=== PATIENT | female | born 1970 | race Caucasian/White ===

== ENCOUNTER → 2020-12-14 15:29 | Outpatient (CLI) | payer OTHER, SELFPAY ==
--- NOTE | ~2020-12-14 | MM_ITS ---
EXAMINATION: MM screening [facility] BI w roland HISTORY: Screening TECHNIQUE: Craniocaudal and mediolateral oblique 3-D tomosynthesis images were obtained and synthetic 2-D images were generated. CAD analysis was submitted and interpreted. COMPARISON: Comparison to multiple prior studies sequentially, with oldest reviewed study dated 01/26. BREAST PARENCHYMAL COMPOSITION: Breast composed of scattered areas of fibroglandular density FINDINGS: . There is a new mass in the central aspect of the right breast in the subareolar location. There is nipple inversion. The mass measures approximately 1.8 cm. There are clustered calcification s of the left breast centered in the upper outer quadrant which are not significantly changed.. There are small masses in the upper outer quadrant of the right breast. IMPRESSION: 1. Developing right breast masses. 2. Additional mammographic views and possible breast ultrasound are recommended. BI-RADS Category 0: Incomplete: Needs additional imaging evaluation. Reviewed, dictated and finalized at location A. ATIONS BOARDMAN IMPRESSION: 1. Developing right breast masses. 2. Additional mammographic views and possible breast ultrasound are recommended . BI-RADS Category 0: Incomplete: Needs additional imaging evaluation.
== END ==
PROVIDERS: PCP Family Medicine; Visit Provider Obstetrics & Gynecology
DX: Z12.31 Encounter for screening mammogram for malignant neoplasm of breast (principal); R92.8 Other abnormal and inconclusive findings on diagnostic imaging of breast
CPT/HCPCS: 77063; 77067

== ENCOUNTER → 2021-01-04 07:50 | Outpatient (CLI) | payer OTHER, SELFPAY ==
--- NOTE | ~2021-01-04 | MMUS_ITS ---
EXAMINATION: MM diagnostic mammo unilat RT, US breast RT limited HISTORY: Right breast masses on screening mammogram TECHNIQUE: Additional 3-D tomosynthesis images of the right breast were performed and synthetic 2-D i mages were generated. CAD analysis was submitted and interpreted. High resolution limited right breas t ultrasound was performed. COMPARISON: 12/14/2020, 08/24/2018, 04/01/2017 FINDINGS: MAMMOGRAPHIC FINDINGS: There is a 1.7 cm oval, obscured, equal density mass in the middle third of the slightly upper breast at 12:00 location 2 cm deep to the nipple. Smaller obscured masses measuring up to 6 mm are seen in the posterior third of the breast at the 9:00 location. ULTRASOUND: There is a 1.4 cm cyst at the 12:00 location 1 cm from the nipple corresponding to the largest mammog raphically detected mass. Multiple smaller cysts are noted which measure up to 7 mm and correspond wi th the additional smaller mammographically detected masses. IMPRESSION: 1. No mammographic or sonographic evidence of malignancy. 2. Recommend routine screening mammography in one year. BI-RADS Category 2: Benign finding(s). Reviewed, dictated and finalized at location A. ELING PLANT OPERATOR IMPRESSION: 1. No mammographic or sonographic evidence of malignancy. 2. Recommend routine screening mammography in one year. BI-RADS Category 2: Benign finding(s).
== END ==
PROVIDERS: PCP Family Medicine; Visit Provider Obstetrics & Gynecology
DX: R92.8 Other abnormal and inconclusive findings on diagnostic imaging of breast (principal)
CPT/HCPCS: 76642; 77065

== ENCOUNTER → 2021-06-18 07:48 | Outpatient (CLI) | payer OTHER, SELFPAY ==
--- NOTE | ~2021-06-18 | MMUS_ITS ---
EXAMINATION: MM diagnostic [facility] BI w roland, US breast BI complete HISTORY: Palpable breast abnormalities. TECHNIQUE: Additional 3-D tomosynthesis images of the breasts were performed and synthetic 2-D images were generated. CAD analysis was submitted and interpreted. High resolution complete bilateral breas t ultrasound was performed. COMPARISON: Comparison to multiple prior studies sequentially, with oldest reviewed study dated 04/13. BREAST PARENCHYMAL COMPOSITION: Breast composed of scattered areas of fibroglandular density. FINDINGS: MAMMOGRAPHIC FINDINGS: There are scattered bilateral breast masses which are partially obscured by fibroglandular tissue. La rgest in the medial aspect of the right breast anteriorly measuring 1.7 cm on CC view. ULTRASOUND: Complete bilateral breast ultrasound: There are multiple bilateral simple and complicated cysts of ritchie th breasts, largest at 12:00 in the right breast in the area of palpable concern measuring 1.8 cm res ponding to the dominant mammographic mass. No suspicious sonographic masses to suggest malignancy. IMPRESSION: 1. Multiple benign bilateral breast cysts corresponding to mammographic masses. No evidence for malig amanda in either breast. 2. Routine yearly screening mammogram and regular clinical breast examination are recommended. BI-RADS Category 2: Benign finding(s). Reviewed, dictated and finalized at location A. IMPRESSION: 1. Multiple benign bilateral breast cysts corresponding to mammographic masses. No evidence for malignancy in either breast. 2. Routine yearly screening mammogram and regular clinical breast examination a re recommended. BI-RADS Category 2: Benign finding(s).
== END ==
PROVIDERS: PCP Family Medicine; Visit Provider Obstetrics & Gynecology
DX: R92.8 Other abnormal and inconclusive findings on diagnostic imaging of breast (principal)
CPT/HCPCS: 76641; 77062; 77066; G0279

== ENCOUNTER → 2022-02-20 14:02 | Outpatient (CLI) | payer OTHER, SELFPAY ==
--- NOTE | ~2022-02-20 | MM_ITS ---
EXAMINATION: MM screening [facility] BI w roland HISTORY: Screening mammogram TECHNIQUE: Craniocaudal and mediolateral oblique 3-D tomosynthesis images were obtained and synthetic 2-D images were generated. CAD analysis was submitted and interpreted. COMPARISON: No prior mammogram is available for comparison at this institution. BREAST PARENCHYMAL COMPOSITION: FINDINGS: Stable circumscribed low-density 1.5 cm opacity in the medial subareolar area of the right breast, not significantly changed since 12/14/2020 There has been no suspicious interval change; this was documented to be a 1.4 cm cyst on January 04, 2021 Limited right breast ultrasound examination. Occasional similar low-density circumscribed opacities measuring up to 8.5 mm are noted 4 mm and 8.5 mm low-density circumscribed opacities are noted, having similar benign mammographic features, likely smaller cysts. IMPRESSION: 1. No mammographic evidence of malignancy. 2. Recommend routine screening mammography in one year. BI-RADS Category 2: Benign finding(s). Reviewed, dictated and finalized at location A.
== END ==
PROVIDERS: PCP Obstetrics & Gynecology; Visit Provider Student in an Organized Health Care Education/Training Program
DX: Z12.31 Encounter for screening mammogram for malignant neoplasm of breast (principal)
CPT/HCPCS: 77063; 77067

== ENCOUNTER → 2023-05-12 15:02 | Outpatient (CLI) | payer OTHER, SELFPAY ==
--- NOTE | ~2023-05-12 | MM_ITS ---
EXAMINATION: MM screening [facility] BI w roland HISTORY: Screening mammogram TECHNIQUE: Craniocaudal and mediolateral oblique 3-D tomosynthesis images were obtained and synthetic 2-D images were generated. CAD analysis was submitted and interpreted. COMPARISON: 02/16/2022 bilateral screening mammogram 06/18/2021 diagnostic bilateral mammogram and bilateral complete breast ultrasound 01/04/2021 diagnostic right mammogram and limited right breast ultrasound 12/14/2020, 08/24/2018 bilateral screening mammogram examinations. There is an grossly BREAST PARENCHYMAL COMPOSITION: FINDINGS: Right breast: There is an approximately 6 x 10 mm circumscribed mass in the posterior mid to lower ou ter right breast. There is a pinpoint calcification within which may be a superficial calcification o f fibroadenoma. Diagnostic right mammogram and right breast ultrasound examination are recommended. Otherwise no suspicious mass or architectural distortion, malignant calcification, skin thickening or retraction or significant new or developing density of the right breast is noted. There is interval decreased size of an approximately 1.5 cm circumscribed mass situated anteriorly in the right lateral subareolar area since 02/16/2022, likely an involuting cyst. Left breast: There is no evidence of suspicious mass, calcification, or architectural distortion to s uggest malignancy in either breast. There has been no suspicious interval change. IMPRESSION: 1. 6 x 10 mm posterior mid to lower outer right breast circumscribed mass 2. Diagnostic right mammogram and right breast ultrasound examination are recommended BI-RADS Category 0: Incomplete: Needs additional imaging evaluation. Reviewed, dictated and finalized at location A. IMPRESSION: 1. 6 x 10 mm posterior mid to lower outer right breast circumscribed mass 2. Diagnostic right mammogram and right breast ultrasound examination are recom mended BI-RADS Category 0: Incomplete: Needs additional imaging evaluation.
== END ==
PROVIDERS: PCP Obstetrics & Gynecology; Visit Provider Obstetrics & Gynecology
DX: Z12.31 Encounter for screening mammogram for malignant neoplasm of breast (principal); R92.8 Other abnormal and inconclusive findings on diagnostic imaging of breast
CPT/HCPCS: 77063; 77067

== ENCOUNTER → 2023-06-11 08:14 | Outpatient (CLI) | payer OTHER, SELFPAY ==
--- NOTE | ~2023-06-11 | MMUS_ITS ---
EXAMINATION: MM diagnostic zulma RT w roland, US breast RT complete HISTORY: 6 x 10 mm posterior mid to lower outer right breast circumscribed mass reported on 05/12/2023 screening mammogram TECHNIQUE: Additional 3-D tomosynthesis images of the right breast were performed and synthetic 2-D i mages were generated. CAD analysis was submitted and interpreted. High resolution complete right jannette st ultrasound examination including all 4 quadrants and subareolar area was performed. COMPARISON: 05/12/2023 bilateral screening mammogram FINDINGS: MAMMOGRAPHIC FINDINGS: Multiple right breast masses are suggested, the largest noted at approximately 2:00, measuring approx imately 11 x 12 mm, and at 9:00, measuring approximately 7.9 x 10 mm. These appear circumscribed. Add itional masses may be present. Complete right breast ultrasound examination was performed. ULTRASOUND: No suspicious mass or shadowing is evident. 1:00 3 cm from nipple: 1 cm cysts with through transmission posterior enhancement 3:00 3 cm from nipple: 4 x 6 x 7.4 mm fatty lesion, benign 6:00 2 cm from distal: Cluster of small cyst 9:00 5 cm from nipple: 9 x 12 mm probable cyst, with through transmission posterior enhancement 9:00 6 cm from nipple: 2.6 x 3.4 mm probable cyst 10:00 5 cm from nipple: 2.8 x 3.7 mm probable cyst 10:00 4 cm from nipple: Parallel circumscribed sonolucency measuring 4 x 8.5 x 8 mm, with through tra nsmission, consistent with simple cyst 10:00 4.5 cm from nipple: 3 x 4.4 mm circumscribed hypoechoic lesion without internal vascularity or posterior shadowing, likely benign Subareolar: 3.3 x 4.7 mm cyst and 3 x 4 mm cyst IMPRESSION: 1. Probable benign findings 2. 6 month diagnostic right mammogram and right breast ultrasound follow-up are recommended BI-RADS category 3, probably benign findings. Reviewed, dictated and finalized at location A. IMPRESSION: 1. Probable benign findings 2. 6 month diagnostic right mammogram and right breast ultrasound follow-up are recommended BI-RADS category 3, probably benign findings.
== END ==
PROVIDERS: PCP Family Medicine; Visit Provider Obstetrics & Gynecology
DX: R92.8 Other abnormal and inconclusive findings on diagnostic imaging of breast (principal)
CPT/HCPCS: 76641; 77061; 77065; G0279

== ENCOUNTER → 2023-10-16 12:46 | Outpatient (CLI) | payer OTHER, SELFPAY ==
--- NOTE | ~2023-10-16 | MR_ITS ---
EXAMINATION: MR IAC wo/w con DATE: 10/16/2023 13:42 INDICATION: Hearing loss. TECHNIQUE: Magnetic resonance imaging (MRI) of the brain, brainstem, and internal auditory canals was performed without and with 15 mL MultiHance intravenous contrast. COMPARISON: Brain MRI 06/25/2012 FINDINGS: There is no intracranial hemorrhage, acute infarction, or abnormal intracranial mass lesion . The ventricles are normal in size. The orbits are normal. There is mild mucosal thickening in left maxillary sinus. There is a small right otomastoid effusion. The internal auditory canals and inner e ars are normal. IMPRESSION: 1. Normal brain. 2. Small right otomastoid effusion. Reviewed, dictated and finalized at location A. LOPE FOLD OPERATOR
== END ==
PROVIDERS: PCP Family Medicine; Visit Provider Otolaryngology
DX: H91.90 Unspecified hearing loss, unspecified ear (principal); H74.8X1 Other specified disorders of right middle ear and mastoid
CPT/HCPCS: 70553; A9577

== ENCOUNTER → 2024-01-08 09:20 | Outpatient (CLI) | payer OTHER, SELFPAY ==
--- NOTE | ~2024-01-08 | MMUS_ITS ---
EXAMINATION: MM diagnostic zulma RT w roland, US breast RT complete HISTORY: Six-month follow-up of probable benign findings TECHNIQUE: Full field and spot ML, MLO and CC 3-D tomosynthesis images of the right breast were perfo rmed and synthetic 2-D images were generated. CAD analysis was submitted and interpreted. High resolu tion complete right breast ultrasound examination including all 4 quadrants and subareolar area was p erformed. COMPARISON: 06/11/2023 diagnostic right mammogram and complete right breast ultrasound 05/12/2023 bilateral screening mammogram BREAST PARENCHYMAL COMPOSITION: The breasts are heterogeneously dense, which may obscure small masses . FINDINGS: MAMMOGRAPHIC FINDINGS: Approximately 6.7 x 10.6 mm partially circumscribed opacity with halo sign is suggested at mid depth in the inner aspect of the upper inner quadrant of the right breast. Otherwise no suspicious mass, architectural distortion, malignant calcification, skin thickening or r etraction is evident. Heterogeneously dense stroma may obscure masses. Complete ultrasound examinatio n was performed. ULTRASOUND: There are multiple scattered cysts, the largest situated at 1:00 2 cm from nipple, measuring 7 x 9 mm , with through transmission posterior enhancement. Multiple additional smaller simple cysts are noted. No suspicious mass or shadowing is detected. IMPRESSION: 1. Benign cysts; no mammographic or sonographic evidence of malignancy 2. Routine mammographic screening is recommended BI-RADS Category 2: Benign finding(s). Reviewed, dictated and finalized at location A. AL HELPER IMPRESSION: 1. Benign cysts; no mammographic or sonographic evidence of malignancy 2. Routine mammographic screening is recommended BI-RADS Category 2: Benign finding(s).
== END ==
PROVIDERS: PCP Family Medicine; Visit Provider Obstetrics & Gynecology
DX: R92.8 Other abnormal and inconclusive findings on diagnostic imaging of breast (principal); N60.01 Solitary cyst of right breast
CPT/HCPCS: 76641; 77061; 77065; G0279

== ENCOUNTER 2025-01-05 11:09 | Outpatient (CLI) | payer OTHER, SELFPAY ==
--- NOTE | ~2025-01-05 | XR_ITS ---
Clinical Indication: Cough PA and lateral views of the chest: Comparison: None Findings: The lungs are clear, without evidence of focal consolidation or pleural effusion. Cardiome diastinal silhouette is within normal limits. Bones and soft tissues are unremarkable. Impression: Normal chest. Reviewed, dictated and finalized at [facility]. 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
== END 2025-01-05 11:10 | disposition home or self-care (01) ==
PROVIDERS: PCP Family Medicine; Visit Provider Physician Assistant
DX: R05.9 Cough, unspecified (principal)
CPT/HCPCS: 71046

== ENCOUNTER 2025-06-22 15:00 | Outpatient (CLI) | payer OTHER, SELFPAY ==
--- NOTE | ~2025-06-22 | MM_ITS ---
EXAMINATION: MM screening [facility] BI w roland HISTORY: Screening TECHNIQUE: Craniocaudal and mediolateral oblique 3-D tomosynthesis images were obtained and synthetic 2-D images were generated. CAD analysis was submitted and interpreted. COMPARISON: Comparison to multiple prior studies sequentially, with oldest reviewed study dated 03/20. BREAST PARENCHYMAL COMPOSITION: The breasts are heterogeneously dense, which may obscure small masses . FINDINGS: There is no evidence of suspicious mass, calcification, or architectural distortion to sug gest malignancy in either breast. Scattered benign-appearing calcifications are present. IMPRESSION: 1. No mammographic evidence of malignancy. 2. Recommend routine screening mammography in one year. BI-RADS Category 2: Benign finding(s). Reviewed, dictated and finalized at location B.
== END 2025-06-22 15:01 | disposition home or self-care (01) ==
LOC: MICIMG 15:00
PROVIDERS: PCP Obstetrics & Gynecology; Visit Provider Obstetrics & Gynecology
DX: Z12.31 Encounter for screening mammogram for malignant neoplasm of breast (principal)
CPT/HCPCS: 77063; 77067